=== PATIENT | female | born 1990 | race Caucasian/White ===

== ENCOUNTER → 2018-01-13 14:40 | Outpatient (CLI) | payer OTHER, SELFPAY ==
[2018-01-13 15:05] LABS: Basophils # 0.1 K/mm3 (0-0.2); Basophils % 0.7 % (0.1-2.0); Eosinophils # 0.2 K/mm3 (0.0-0.4); Eosinophils % 1.7 % (0.1-12.0); Hematocrit 38.8 % (37.0-47.0); Hemoglobin 12.6 g/dL (12.2-16.2); Lymphocytes # 3.5 K/mm3 (0.7-4.5); Lymphocytes % 33.6 K/mm3 (10-50); Mean Corpuscular HGB Conc 32.5 g/dL (31.8-35.4); Mean Corpuscular Hemoglobin 28.1 pg (27.0-31.2); Mean Corpuscular Volume 86.6 fl (81-99); Mean Platelet Volume 7.3 fl (7.4-10.4); Monocytes # 0.6 K/mm3 (0.1-1.0); Platelet Count 251 K/mm3 (142-424); Red Blood Count 4.48 M/mm3 (4.20-5.40); Red Cell Distribution Width 12.3 % (11.5-17.5); White Blood Count 10.3 K/mm3 (4.8-10.8)
[2018-01-13 16:16] LABS: Alanine Aminotransferase 31 U/L (12-78); Albumin Level 3.8 gm/dL (3.4-5.0); Albumin/Globulin Ratio 0.9 (1.1-1.8); Alkaline Phosphatase 78 U/L (46-116); Anion Gap 15.4 mEq/L (5-15); Aspartate Amino Transferase 17 U/L (15-37); Bilirubin,Total 0.2 mg/dL (0.2-1.0); Blood Urea Nitrogen 15 mg/dL (7-18); Calcium 9.6 mg/dL (8.5-10.1); Carbon Dioxide 24 mmol/L (21.0-32.0); Chloride 108 mmol/L (98-107); Creatinine,Serum 0.78 mg/dL (0.55-1.02); Estimated Glomerular Filt Rate 89 ml/min (>60); Free T4 (Free Thyroxine) 1.18 ng/dl (0.76-1.46); GFR (African American) 108 ML/MIN (>60); Globulin 4.2 gm/dl (1.3-3.2); Glucose 95 mg/dL (74-106); Potassium 4.4 mmoL/L (3.5-5.1); Sodium 143 mmol/L (136-145); Thyroid Stimulating Hormone 2.05 uIU/ml (0.358-3.740)
[2018-01-15 19:03] LABS: Vitamin B12 327 pg/mL (232-1245)
== END ==
PROVIDERS: PCP Internal Medicine Adolescent Medicine; Visit Provider Nurse Practitioner Family
DX: R55 Syncope and collapse (principal); E03.9 Hypothyroidism, unspecified; E53.8 Deficiency of other specified B group vitamins
CPT/HCPCS: 36415; 80053; 82607; 84439; 84443; 85025; 93005

== ENCOUNTER → 2018-01-18 16:29 | Outpatient (CLI) | payer BC, SELFPAY | PROVIDERS: PCP Internal Medicine Adolescent Medicine; Visit Provider Internal Medicine Adolescent Medicine | DX: R55 Syncope and collapse (principal) | CPT/HCPCS: 93225 ==

== ENCOUNTER → 2018-01-27 15:04 | Outpatient (CLI) | payer BC, SELFPAY ==
--- NOTE | 2018-01-27 15:08 | CA_ITS ---
PROCEDURE: 2-D M-mode and color Doppler study INDICATIONS FOR THE TEST: Chest pain COPD Heart Murmur Tobacco Smoking Palpitations Fatigue SyncopeX Edema Hypertension Diabetes Mellitus Rheumatic Fever SOB BANSAL Obesity Hyperlipidemia Family History HD Additional History SVT PATIENT INFORMATION HEIGHT: 61 WEIGHT:180 GENDER: Female B/P:110/70 2-D/M-MODE INTERPRETATION: 2-D MEASUREMENTS OBSERVED VALUES IN CMS Right Ventricular Dimension (RVDd) 2.1 Interventricular Septum (Thickness)(IVsd) .7 Left Ventricular Internal Dimensions(LVIDd) 5.5 Left Ventricular Posterior Wall (Thickness)(LVPWd) .8 Aortic Root 3.5 Aortic Cusp Separation 2.1 Left Atrial Dimensions (LAD) 2.0 2D 1. Left atrium is normal size, left ventricle is normal size, visually estimated ejection fraction 55% with no obvious regional wall motion abnormality, there is no concentric left ventricular hypertrophy present. 2. The right atrium and right ventricle are normal size and contractility. 3. The aortic, mitral and tricuspid valve are grossly normal. 4. The pulmonic valve is poorly visualized. 5. No significant pericardial effusion noted. DOPPLER INTERROGATION: Doppler interrogation of the aortic, mitral and tricuspid valvular presence of mild mitral and tricuspid regurgitation, grade ventricular systolic pressure is 34 mmHg, diastolic parameters are within normal range. CONCLUSION: 1. Normal left ventricular size, preserved left ventricular systolic function, visually estimated ejection fraction of 55% with no obvious regional wall motion abnormality, there is no concentric left ventricular hypertrophy present. Diastolic parameters are within normal range. 2. Mild mitral and tricuspid regurgitation, calculi right ventricular systolic pressure is 34 mmHg 3. No significant pericardial effusion noted.
== END ==
PROVIDERS: Family Provider Internal Medicine Adolescent Medicine; PCP Internal Medicine Adolescent Medicine; Visit Provider Internal Medicine Adolescent Medicine
DX: I47.1 Supraventricular tachycardia (principal)
CPT/HCPCS: 93306

== ENCOUNTER → 2019-08-24 15:50 | Outpatient (CLI) | payer BC, SELFPAY ==
[2019-08-24 15:51] LABS: Adenovirus F 40/41, stool Not Detected (NotDetected); Astrovirus Not Detected (NotDetected); Campylobacter Not Detected (NotDetected); Clostridium Difficile A/B, PCR Not Detected (NotDetected); Cryptosporidium Not Detected (NotDetected); Cyclospora Cayetanesis Not Detected (NotDetected); Entamoeba histolytica Not Detected (NotDetected); Enteroaggregative E coli Not Detected (NotDetected); Enteropathogenic E coli Not Detected (NotDetected); Enterotoxigenic E coli Not Detected (NotDetected); Giardia lamblia Not Detected (NotDetected); Plesimonas Shigalloides, PCR Not Detected (NotDetected); Rotavirus A Not Detected (NotDetected); Salmonella, PCR Not Detected (NotDetected); Sapovirus Not Detected (NotDetected); Shiga-like toxin E coli Not Detected (NotDetected); Shigella Enterovasive E coli Not Detected (NotDetected); Vibrio Cholerae Not Detected (NotDetected); Vibrio, PCR Not Detected (NotDetected); Yersinia Entercolitica, PCR Not Detected (NotDetected)
[2019-08-24 19:15] LABS: Norovirus Detected (NotDetected)
== END ==
PROVIDERS: Visit Provider Nurse Practitioner Family
DX: R19.7 Diarrhea, unspecified (principal); A08.11 Acute gastroenteropathy due to Norwalk agent
CPT/HCPCS: 87507

== ENCOUNTER → 2020-07-23 10:34 | Outpatient (CLI) | payer BC, SELFPAY ==
--- NOTE | 2020-07-23 10:42 | XR_ITS ---
PROCEDURE: XR CHEST 2V CLINICAL HISTORY: COUGH COMPARISON: No exams were available for comparison FINDINGS: The cardiomediastinal silhouette and pulmonary vascularity are within normal limits. The lungs are clear without infiltrates, suspicious nodules, or pleural effusions. No acute bony abnormalities. IMPRESSION: No acute findings. Dictated by: Dr. Paco Starr MD 07/23/2020 11:35 Dr. Paco Starr MD in [place] 07/23/2020 11:35
== END ==
PROVIDERS: PCP Internal Medicine Adolescent Medicine; Visit Provider Internal Medicine Adolescent Medicine
DX: R05 Cough (principal)
CPT/HCPCS: 71046

== ENCOUNTER → 2021-06-24 08:09 | Outpatient (CLI) | payer BC, SELFPAY | PROVIDERS: PCP Internal Medicine Adolescent Medicine; Visit Provider Nurse Practitioner | DX: Z20.822 Contact with and (suspected) exposure to COVID-19 (principal) | CPT/HCPCS: C9803; U0003; U0005 ==

== ENCOUNTER → 2021-06-27 08:10 | Outpatient (CLI) | payer BC, SELFPAY | PROVIDERS: PCP Internal Medicine Adolescent Medicine; Visit Provider Nurse Practitioner | DX: Z20.822 Contact with and (suspected) exposure to COVID-19 (principal) | CPT/HCPCS: C9803; U0003; U0005 ==

== ENCOUNTER → 2021-06-30 08:12 | Outpatient (CLI) | payer OTHER, SELFPAY | PROVIDERS: PCP Internal Medicine Adolescent Medicine; Visit Provider Nurse Practitioner | DX: Z20.822 Contact with and (suspected) exposure to COVID-19 (principal) | CPT/HCPCS: C9803; U0003; U0005 ==

== ENCOUNTER → 2021-09-09 08:11 | Outpatient (CLI) | payer OTHER, SELFPAY | PROVIDERS: PCP Internal Medicine Adolescent Medicine; Visit Provider Nurse Practitioner | DX: Z20.822 Contact with and (suspected) exposure to COVID-19 (principal) | CPT/HCPCS: C9803; U0003; U0005 ==

== ENCOUNTER → 2021-09-15 08:02 | Outpatient (CLI) | payer OTHER, SELFPAY | PROVIDERS: PCP Internal Medicine Adolescent Medicine; Visit Provider Nurse Practitioner | DX: Z20.822 Contact with and (suspected) exposure to COVID-19 (principal) | CPT/HCPCS: C9803; U0003; U0005 ==

== ENCOUNTER → 2021-09-29 08:22 | Outpatient (CLI) | payer OTHER, SELFPAY | PROVIDERS: PCP Internal Medicine Adolescent Medicine; Visit Provider Nurse Practitioner | DX: Z20.822 Contact with and (suspected) exposure to COVID-19 (principal) | CPT/HCPCS: C9803; U0003; U0005 ==

== ENCOUNTER → 2021-10-06 17:30 | Outpatient (CLI) | payer OTHER, SELFPAY | PROVIDERS: Visit Provider Nurse Practitioner Family | DX: R30.0 Dysuria (principal) | CPT/HCPCS: 87086 ==

== ENCOUNTER 2021-10-11 09:06 | Emergency (ER) | payer BC, SELFPAY ==
[2021-10-11 09:30] VITALS: BP 160/94; PULSE 101; RESP 19; TEMP 37.2; O2SAT 99; BMI 43.4
[2021-10-11 10:04] LABS: UTC Strep Screen (Rapid) Negative (Negative)
[2021-10-11 10:19] VITALS: BP 122/74
--- NOTE | 2021-10-11 10:20 | HMH.EDUTC ---
[facility] Disposition Clinical Impression: Viral syndrome Disposition: Home, Self-Care Condition on Discharge: Good Instructions: DI for Viral Syndrome, DI for COVID-19 (Suspected or Confirmed ), Preventing the Spread of Coronavirus Discharge Instructions Additional Instructions: *Monitor Temp, Over the counter Motrin or Tylenol as directed/as needed Tylenol every 4 hours and Motrin every 6 hours (as long as your family doctor has told you that you can take it) for fever or pain. and straight to ER if unable to lower temp less than 101.0 after medication given *Warm salt water gargles may help to soothe the throat *Throat Lozenges *Warm fluids like tea with honey may help to soothe the throat *Sleep elevated *Humidifier/Vaporizer Bromfed may cause drowsiness. Know how it effects you (your child) before driving, caring for small child, or sending your child to school. Not other antihistamines/allergy medications while taking bromfed Your throat swab was sent for culture. Those results are typically sent to your primary care. Be sure to follow up in 2-3 days with your family doctor/primary care physician if no improvement so they can review those result and treat if necessary. If you don?t have a primary care doctor, I recommend you get one but in the mean time, you will have to return to a walk in clinic Follow up IMMEDIATELY for new or worsening symptoms or no Noticeable improvement over the next 48-72 hours. 911 for difficulty breathing or swallowing You were tested for today for COVID19 your test result should be back in the next 24-48 hours, you may check your results on the [facility] My Health Portal if you have trouble logging on you may call You was given a handout with instructions for Self Quarantine and Self isolation for while you wait on test results and what to do if they are positive If you are positive the Health Dept will be contacting you also Make sure to take your Vitamins Vit. C Vit D and Zinc if you can take them Prescriptions: Brompheniramine/Pseudoephed/Dm [Bromfed Dm Cough Syrup] 5 - 10 ml PO Q46H PRN #200 ml PRN Reason: Cough Transmission Status: Pending to [id number] Referrals: Andrea De Luna MD [Primary Care Provider] - As needed Forms: Work/School Release Time of Disposition: 10:31 Medical Decision Making - Chemo Inquiry Pt receiving controlled substance: No Chemo was queried for this patient: No Vital Signs: 10/11/21 09:30 10/11/21 10:19 Temperature 99.0 F Temperature Source Oral Pulse Rate [Right Brachial] 101 H Respiratory Rate 19 Blood Pressure [Right Arm] 160/94 H 122/74 Blood Pressure Mean [Right Arm] 116 90 Blood Pressure Source [Right Arm] Automatic Cuff Automatic Cuff Blood Pressure Position [Right Arm] Sitting Sitting 02 Sat by Pulse Oximetry 99 Oxygen Delivery Method Room Air - Lab Data Lab results reviewed: Yes: I reviewed the patient's lab results. Lab Results 10/11/21 09:39: Strep Scn Rapid Clinic Negative Orders (Tests/Meds): ORDERS Category Date Time Status Full Resp Panel w/COVID ([facility]) Routine Lab 10/11/21 09:57 Ordered Strep Screen Confirmation Stat Micro 10/11/21 09:39 Received Medical Decision Narrative: Patient denies LMP was 1 week ago [facility] HPI - General Stated complaint: sore throat, runny nose, congestion Time Seen by Provider: 10/11/21 10:20 Mode of Arrival: Ambulatory Source of Information: Patient Limitations: No Limitations Description of Symptoms (Recalled from Triage Doc. by RN): PATIENT C/O SORE THROAT, EAR ACHE, AND RUNNY NOSE X 3 DAYS. RECENTLY EXPOSED TO COVID HEENT Symptoms (Recalled from RN notes): Yes Resp Symptoms (Recalled from RN notes): No Skin Symptoms (Recalled from RN notes): No MS Symptoms (Recalled from RN notes): No Functional Status (Recalled from RN notes): WNL - History of Present Illness Provider Complaint: Patient states that she was recently around someone that tested p
[2021-10-11 10:32] VITALS: BP 122/74; PULSE 101; RESP 19; TEMP 37.2; O2SAT 99
[2021-10-11 14:23] LABS: Adenovirus,PCR Not Detected (NotDetected); Bordetella Pertussis Not Detected (NotDetected); Chlamydophila Pneumoniae, PCR Not Detected (NotDetected); Coronavirus 19, PCR Not Detected (NotDetected); Coronavirus 229E Not Detected (NotDetected); Coronavirus NL63 Not Detected (NotDetected); Coronavirus OC43 Not Detected (NotDetected); Coronovirus HKU1,PCR Not Detected (NotDetected); Human Metapneumovirus Not Detected (NotDetected); Influenza A, PCR Not Detected (NotDetected); Influenza AH1, 2009 Not Detected (NotDetected); Influenza AH1, PCR Not Detected (NotDetected); Influenza AH3,PCR Not Detected (NotDetected); Influenza B, PCR Not Detected (NotDetected); Mycoplasma Pneumoniae, PCR Not Detected (NotDetected); Parainfluenza 1, PCR Not Detected (NotDetected); Parainfluenza 2, PCR Not Detected (NotDetected); Parainfluenza 4, PCR Not Detected (NotDetected); Respiratory Syncytial Virus Not Detected (NotDetected); Rhinovirus/Enterovirus Not Detected (NotDetected)
[2021-10-11 16:29] LABS: Parainfluenza 3, PCR Detected (NotDetected)
== END 2021-10-11 10:36 | disposition home or self-care (01) ==
PROVIDERS: Emergency Provider Nurse Practitioner; PCP Internal Medicine Adolescent Medicine
DX: B34.9 Viral infection, unspecified (principal)
CPT/HCPCS: 87581; 87632; 87798; 87880; 99203; C9803; G0463; U0003; U0005

== ENCOUNTER → 2021-11-09 16:52 | Outpatient (CLI) | payer BC, SELFPAY | PROVIDERS: PCP Nurse Practitioner Family; Visit Provider Nurse Practitioner Family | DX: Z20.822 Contact with and (suspected) exposure to COVID-19 (principal); R05.9 Cough, unspecified | CPT/HCPCS: C9803; U0003; U0005 ==

== ENCOUNTER → 2022-03-03 13:30 | Outpatient (POV) | payer BC, SELFPAY | PROVIDERS: Visit Provider Dermatology | DX: Z00.00 Encounter for general adult medical examination without abnormal findings (principal) ==

== ENCOUNTER 2023-12-20 17:20 | Outpatient (CLI) | payer BC, SELFPAY | END 2023-12-20 23:59 | LOC: LAB 17:20 | PROVIDERS: PCP Internal Medicine Adolescent Medicine; Visit Provider Internal Medicine | DX: R73.09 Other abnormal glucose (principal); Z53.9 Procedure and treatment not carried out, unspecified reason | CPT/HCPCS: 36415 ==

== ENCOUNTER 2023-12-21 07:03 | Outpatient (CLI) | payer BC, SELFPAY ==
[2023-12-21 08:50] LABS: Hemoglobin A1C 5.1 % (4.0-6.0)
[2023-12-22 13:13] LABS: Adrenocorticotropic Hormone 26.3 pg/mL (7.2-63.3)
== END 2023-12-21 23:59 ==
LOC: LAB 07:03
PROVIDERS: PCP Internal Medicine Adolescent Medicine; Visit Provider Internal Medicine
DX: R73.09 Other abnormal glucose (principal)
CPT/HCPCS: 36415; 82024; 82533; 83036

== ENCOUNTER 2024-03-08 10:24 | Outpatient (CLI) | payer BC, SELFPAY | END 2024-03-08 23:59 | disposition home or self-care (01) | LOC: LAB.DROPOF 03-09 10:24 | PROVIDERS: PCP Nurse Practitioner Family; Visit Provider Nurse Practitioner Family | DX: N39.0 Urinary tract infection, site not specified (principal); B96.20 Unspecified Escherichia coli [E. coli] as the cause of diseases classified elsewhere; B96.1 Klebsiella pneumoniae [K. pneumoniae] as the cause of diseases classified elsewhere; Z16.11 Resistance to penicillins; Z16.29 Resistance to other single specified antibiotic; N94.9 Unspecified condition associated with female genital organs and menstrual cycle | CPT/HCPCS: 87086; 87088; 87186 ==

== ENCOUNTER 2024-05-22 16:24 | Outpatient (CLI) | payer BC, SELFPAY ==
[2024-05-22 17:15] LABS: Alanine Aminotransferase 18 U/L (12-78); Albumin/Globulin Ratio 1.2 (1.1-1.8); Alkaline Phosphatase 80 U/L (38-126); Aspartate Amino Transferase 19 U/L (14-36); Bilirubin,Total 0.3 mg/dl (0.2-1.3); Blood Urea Nitrogen 12 mg/dl (7-17); Calcium 9.2 mg/dl (8.4-10.2); Carbon Dioxide 25 mmol/L (22.0-30.0); Chloride 107 mmol/L (98-107); Chol/HDL Ratio 3.7 (1-3.5); Cholesterol 150 mg/dl (140-200); Estimated Glomerular Filt Rate 96 ml/min (>60); GFR (African American) 117 ML/MIN (>60); Globulin 3.3 g/dL (1.3-3.2); Glucose 92 mg/dl (74-100); HDL Cholesterol 41 mg/dl (40-60); Sodium 139 mmol/L (136-145); Total Protein,Serum 7.3 g/dl (6.3-8.2); Triglycerides 73 mg/dl (30-150); VLDL Cholesterol 15 mg/dL (0-40)
[2024-05-22 17:26] LABS: Direct LDL Cholesterol 84.21 mg/dL (100-129)
[2024-05-22 18:05] LABS: Hemoglobin A1C 5.1 % (4.0-6.0)
== END 2024-05-22 23:59 | disposition home or self-care (01) ==
LOC: LAB 16:27
PROVIDERS: PCP Internal Medicine Adolescent Medicine; Visit Provider Internal Medicine Endocrinology, Diabetes & Metabolism
DX: E66.9 Obesity, unspecified (principal); Z68.42 Body mass index [BMI] 45.0-49.9, adult
CPT/HCPCS: 80053; 80061; 83036

== ENCOUNTER 2025-05-16 12:13 | Outpatient (CLI) | payer BC, SELFPAY ==
--- OUTSIDE RECORDS SUMMARY | 2025-01-06 17:30 | XMS_ITS ---
Author Organization [facility] Address [address] [facility] [address] [place] [address] Care Team Providers Care Senior Estimator Name Role Phone Andrea De Luna Primary Care Provider Clair Brown Unavailable [phone] Migration, Provider Unavailable Unavailable Allergies Allergen (clinical drug ingredient) Drug/Non Drug Allergy documented on EMR Reaction Allergy Type Onset Date Status levothyroxine Levothyroxine colored tabs- hives Drug Allergy Active [facility] Conversion Encounter Medications Medication SIG (Take, Route, Frequency, Duration) Notes Start Date End Date Status Benzonatate 200 MG 1 cap(s) orally 3 ti mes a day as needed for cough; Duration: 5 days 08/30/2024 Active Doxycycline Hyclate 100 MG 1 cap(s) oral ly 2 times a day; Duration: 10 days 08/30/2024 Active Levothyroxine Sodium 75 MCG 1 tab(s) ora lly once a day Active Lexapro 10 MG 1 tab(s) orally once a day Active Encounters Encounter Location Date Provider Diagnosis [facility] [address] [facility] [address] [place] [address] 01/06/2025 Provider Migration Bronchitis J40 and Acute non-recurrent maxillary sinusitis J01.00 Assessments Encounter Date Diagnosis (ICD Code) Assessment Notes Treatment Notes Treatment Clinical Notes Section Notes 01/06/2025 Bronchitis (ICD-10 - J40) 01/06/2025 Acute non-recurrent maxillary sinusitis (ICD-10 - J01.00) Plan Of Treatment Medication Medication Name Sig Start Date Stop Date Notes Benzonatate 200 MG 1 cap(s) orally 3 ti mes a day as needed for cough; Duration: 5 days 08/30/2024 Doxycycline Hyclate 100 MG 1 cap(s) oral ly 2 times a day; Duration: 10 days 08/30/2024 Progress Notes * Jackelin LOPEZ KDOB:[birth year] (35 yo F)Acc No.[id number]:01/06/2025 Patient: Jackelin REZA Provider: Marc rivera Migration :1990 A ge:34 Y S ex:Female Date:01/06/2025 Address:[facility] [address] [place], [id number] Pcp:Andrea De Luna Subjective: * Chief Complaints: * 1 . [facility] Conversion Encounter. * Medical History: * Medications: T aking Lexapro 10 MG Tablet 1 tab(s) orally once a day , Taking Levothyroxine Sodium 75 MCG Tablet 1 tab(s) orally once a day * Allergies: L evothyroxine: colored tabs- hives. Objective: * Vitals: Assessment: * Assessment: 1. A cute non-recurrent maxillary sinusitis - J01.00 (Primary) 2 . B ronchitis - J40 Plan: * Treatment: 2. B ronchitis Start Benzonatate Capsule, 200 MG, 1 cap(s), orally, 3 times a day as needed for cough, 5 days, 15, Refills 0. * * Electronic signature of Prov ider Migration on 05/18/2025 at 12:16 PM EDT Sign off status: Pending * Provider: Marc rivera Migration Date: 0 01/06/2025 Generated for Lee vargas/Irlanda/Mairaitting on: 0 05/18/2025 12:16 PM EDT
--- OUTSIDE RECORDS SUMMARY | 2025-04-05 04:45 | XMS_ITS ---
Author Organization [facility] Address [address] [place] [address] Care Team Providers Care Manager Casino Name Role Phone DrakeAndrea alston Primary Care Provider Clair Brown Unavailable [phone] Tawny Da Silva Unavailable [phone] Allergies Allergen (clinical drug ingredient) Drug/Non Drug Allergy documented on EMR Reaction Allergy Type Onset Date Status levothyroxine Levothyroxine colored tabs- hives Drug Allergy Active Results Component Value Reference Range Notes Urinalysis Reviewed date:04/05/2025 09:40:28 AM Interpretation: Performing Lab: Notes/Report: Color/Clarity yellow Leuk neg Nitrite neg Urobili 0.2 Protein neg pH 5.5 Blood neg Sp. Gr. 1.025 Ketone neg Bili neg Glucose neg CULTURE, URINE, ROUTINE (395 ) Reviewed date:04/09/2025 10:34:48 AM Interpretation: Performing Lab:[facility], [id number] Chirag Cowart Notes/Report: NON-FASTING CULTURE, URINE, ROUTINE SEE NOTE CULTURE, URINE, ROUTINE Micro Number: [id number] Test Status: Final Specimen Source: Urine Specimen Quality: Adequate Result: Mixed genital yin isolated. These superficial bacteria are not indicative of a urinary tract infection. No further organism identification is warranted on this specimen. If clinically indicated, recollect clean-catch, mid-stream urine and transfer immediately to Urine Culture Transport Tube. REASON FOR VISIT Possible uti and rash in groin area Medications Medication SIG (Take, Route, Frequency, Duration) Notes Start Date End Date Status Nystatin 695391 UNIT/GM 1 application Ex ternally Twice a day; Duration: 7 days 04/05/2025 Active Nystatin 410249 UNIT/GM 1 application Ex ternally Twice a day; Duration: 7 days 04/05/2025 Active Levothyroxine Sodium 88 MCG 1 tab(s) ora lly once a day Active Vital Signs Temperature 97.6 degrees Fahrenheit 04/05/20 25 Blood pressure systolic 120 mm Hg 04/05/20 25 Blood pressure diastolic 82 mm Hg 025 Heart Rate 80 /min 04/05/2025 Height 62 in 04/05/2025 Weight 249 lbs 04/05/2025 BMI 45.54 kg/m2 04/05/2025 Encounters Encounter Location Date Provider Diagnosis [facility] [address] [place] [address] 04/05/2025 Tawny Da Silva Dysuria R30.0 and Yeast dermatitis B37.2 Assessments Encounter Date Diagnosis (ICD Code) Assessment Notes Treatment Notes Treatment Clinical Notes Section Notes 04/05/2025 Dysuria (ICD-10 - R30.0) 04/05/2025 Yeast dermatitis (ICD-10 - B37.2) Keep area clean and dry, start topical therapy as noted and continue to use for several days after resolution of rash. Return precautions reviewed Plan Of Treatment Medication Medication Name Sig Start Date Stop Date Notes Nystatin 981010 UNIT/GM 1 application Ex ternally Twice a day; Duration: 7 days 04/05/2025 Nystatin 724879 UNIT/GM 1 application Ex ternally Twice a day; Duration: 7 days 04/05/2025 Next Appt Details Follow Up: prn, Reason: Progress Notes * Jackelin LOPEZ KDOB:[birth year] (35 yo F)Acc No.[id number]:04/05/2025 Progress Notes Patient: Kushal JOELJackelin MCCLELLAN Provider: TOREY Kent :1990 A ge:35 Y S ex:Female Date:04/05/2025 Address:[address], [place], [place] Pcp:Andrea De Luna Subjective: * Chief Complaints: * 1 . Possible uti and rash in groin area. * HPI: D ermatology: 35-year-old female presents today with rash and irritation in her inguinal folds bilaterally. Left is a little worse than the right. Started after vacation at the beach where she spent a lot of time in the water and heat. No fevers or constitutional symptoms otherwise. Has also had some very vague dysuria and urine is darker than usual. She does have a history of urinary tract infections and reports that her urinalysis is typically normal. * ROS: C ONSTITUTIONAL: Reviewed, No Symptoms Reported: Pari es. F EMALE REPRODUCTIVE: Reviewed, No Symptoms Reported: Pari nunez. G ASTROENTEROLOGY: Reviewed, No Symptoms Reported: Pari nunez. * Medical History: H ypothyroidism. * Medications: T aking Levothyroxine Sodium 88 MCG Capsule 1 tab(s) orally once a day , Discontinued Lexapro 10 MG Tablet 1 tab(s) orally once a day , Discontinued Doxycycline Hyclate 100 MG Capsule 1 cap(s) orally 2 times a day , Discontinued Benzonatate 200 MG Capsule 1 cap(s) orally 3 times a day as needed for cough , Medication List reviewed and reconciled with the patient * Allergies: L evothyroxine: colored tabs- hives. Objective: * Vitals: N urse: be, Pain: 0, Temp: 97.6, RR: 16, HR: 80, BP: 120/82, Ht: 62, Wt: 249, BMI:45.54. * Examination: G eneral Examination: General P leasant and Cooperative, NAD on RA,. Heart: R egular Rate and Rhythm, no murmur, rubs or gallops. Lungs: c lear to auscultation,. Abdomen: s oft, NT/ND, BS present. Skin: b ilat inguinal folds with mild erythema but with satellite papules. Psych N ormal Mood/Affect. Assessment: * Assessment: 1. Y east dermatitis - B37.2 (Primary) 2 . D ysuria - R30.0 ? Plan: * Treatment: 2. D ysuria L AB: CULTURE, URINE, ROUTINE (395) Value Reference Range C ULTURE SEE NOTE - * This lab was reviewed by Jes Stephen on 04/09/2025 at 10:34 AM EDT ?LAB: Urinalysis (Collection Date & Time - 04/05/2025)* Value Reference Range C olor/Clarity yellow * L euk neg * N itrite neg * U robili 0.2 * P rotein neg * p H 5.5 * B lood neg * S p. Gr. 1.025 * K etone neg * B john paul neg * G lucose neg * This lab was reviewed by Mert Da Silva on 04/05/2025 at 09:40 AM EDT * Procedure Codes: 8 1002 URINALYSIS, Modifiers: QW * Follow Up: p rn * * Sign off status: Completed true * Provider: TOREY Kent Date: 0 04/05/2025 Generated for Lee vargas/Irlanda/eTransmitting on: 0 05/18/2025 12:16 PM EDT History and Physical Notes * Examination Category Sub-Category Detail Notes Category Not es General Examination Heart: Regular Rate and Rhythm, no murmur, rubs or gallops Lungs: clear to auscultatio n, Abdomen: soft, NT/ND, BS pres ent Skin: bilat inguinal folds with mild erythema but with satellite papules General Pleasant and Coopera tive, NAD on RA, Psych Normal Mood/Affect
--- OUTSIDE RECORDS SUMMARY | 2025-04-20 07:31 | XMS_ITS ---
Author Organization [facility] Address [address] [place] [address] Care Team Providers Care Windows Phone Developer Name Role Phone Catherine Espana Unavailable [phone] Tawny Boss Unavailable [phone] REASON FOR VISIT NOB u/s order Encounters Encounter Location Date Provider Diagnosis [facility] [address] [place] [address] 04/20/2025 Tawny Boss Missed period N92.6 Assessments Encounter Date Diagnosis (ICD Code) Assessment Notes Treatment Notes Treatment Clinical Notes Section Notes 04/20/2025 Missed period (ICD-10 - N92.6) Plan Of Treatment Future Test Test Name Order Date *US OB Transvaginal 04/24/2025 Next Appt Details Provider Name:Tawny Boss, 06/06/2025 09:45:00 AM, [address], [address], Provider Name:Tawny Boss, 06/06/2025 10:00:00 AM, [address], [place], [address], Progress Notes * Jackelin LOPEZDOB:1990 (35 yo F)Acc No.[id number]:04/20/2025 Patient: Kushal JOELMert MCCLELLANina :1990 A ge:35 Y S ex:Female Address:[address], [place], [address] Subjective: * Chief Complaints: * N OB u/s order Assessment: * Assessment: 1. M issed period - N92.6 Plan: * Treatment: * true * Date: Generated for Lee vargas/Irlanda/Shireen on: 0 05/18/2025 12:16 PM EDT
--- OUTSIDE RECORDS SUMMARY | 2025-04-27 04:57 | XMS_ITS ---
Author Organization [facility] Address [address] [facility] [address] [place] [address] Care Team Providers Care Video Surveillance Technician Name Role Phone Catherine Espana Unavailable [phone] GeraTawny Unavailable [phone] REASON FOR VISIT Sickness Medications Medication SIG (Take, Route, Frequency, Duration) Notes Start Date End Date Status Ondansetron HCl 4 MG Tablet 1 tablet Ora lly every 6 hours as needed; Duration: 30 days 04/27/2025 Active Bonjesta 20-20 MG Tablet Extended Release 1 tablet at bedtime Orally Once a day; Duration: 30 days 04/27/2025 Active Encounters Encounter Location Date Provider Diagnosis [facility] [address] [place] [address] 04/27/2025 Tawny Gera Plan Of Treatment Medication Medication Name Sig Start Date Stop Date Notes Ondansetron HCl 4 MG Tablet 1 tablet Ora lly every 6 hours as needed; Duration: 30 days 04/27/2025 Bonjesta 20-20 MG Tablet Extended Release 1 tablet at bedtime Orally Once a day; Duration: 30 days 04/27/2025 Next Appt Details Provider Name:Tawny Gera, 06/06/2025 09:45:00 AM, [address] [facility] [address] [place] [address], [address], Provider Name:Tawny Gera, 06/06/2025 10:00:00 AM, [address] , [facility] [address], [place], [address], Progress Notes * Sherice LOPEZ:1990 (35 yo F)Acc No.[id number]:04/27/2025 Patient: Jackelin REZA :1990 A ge:35 Y S ex:Female Address:[address] [place] [address] * Refills Start Bonjesta Tablet Extended Release, 20-20 MG, Orally, 30 Tablet, 1 tablet at bedtime, Once a day, 30 days, Refills=3 Start Ondansetron HCl Tablet, 4 MG, Orally, 60, 1 tablet, every 6 hours as needed, 30 days, Refills=1 Subjective: * Chief Complaints: * S ickness Plan: * Treatment: * true * Date: Generated for Lee vargas/Irlanda/Shireen on: 0 05/18/2025 12:16 PM EDT
[2025-05-16 20:03] LABS: Coronavirus 19, PCR Not Detected (NotDetected); Influenza A, PCR Not Detected (NotDetected); Influenza B, PCR Not Detected (NotDetected)
--- OUTSIDE RECORDS SUMMARY | 2025-05-18 12:16 | XMS_ITS | Encounter Summary ---
Author Organization [facility] Address [address] [place] [address] Care Team Providers Care Ice Seller Name Role Phone Andrea De Luna MD Primary Care Provider [phone] Encounter Details Date Type Department Care Team (Late st Contact Info) Description 03/19/2025 Results Follow-Up [facility] [address] [place] [address] Mary Wolff MD [address] [place] [address] Social History Tobacco Use Types Packs/Day Years Used Date Smoking Tobacco: Never Smokeless Tobacco: Never Alcohol Use Standard Drinks/Week Comments Not Currently 0 (1 standard drink = 0.6 oz pur e alcohol) rarely AUDIT-C Answer Date Recorded Q1: How often do you have a drink containing alcohol? Never 12/09/2022 Q2: How many drinks containi ng alcohol do you have on a typical day when you are drinking? Patient does not drink Q3: How often do you have si x or more drinks on one occasion? Never 12/09/2022 Overall Financial Resource Strain (CARDIA) Answe r Date Recorded How hard is it for you to pa y for the very basics like food, housing, medical care, and heating? Not hard at all 06/26/2020 [facility] Occup[facility] ional [facility] - Occupational Stress Questionnaire Answer Date Recorded Do you feel stress - tense, restless, nervous, or anxious, or unable to sleep at night because your mind is troubled all the time - these days? Not at all 06/26/2020 Exercise Vital Sign Answer Date Recorde d On average, how many days pe r week do you engage in moderate to strenuous exercise (like a brisk walk)? 0 days 06/26/2020 On average, how many minutes do you engage in exercise at this level? 0 min 06/26/2020 Hunger Vital Sign Answer Date Recorded Within the past 12 months, y ou worried that your food would run out before you got the money to buy more. Never true 06/26/20 20 Within the past 12 months, t he food you bought just didn't last and you didn't have money to get more. Never true 06/26/2020 PRAPARE - Transportation Answer Date Re corded In the past 12 months, has l ack of transportation kept you from medical appointments or from getting medications? No 06/05 In the past 12 months, has l ack of transportation kept you from meetings, work, or from getting things needed for daily living? No 06/26/2020 Post Depression Scale Answer Date Recorded Retired Post Depression Score 2 12/09/2022 Retired EPD Scale: Thought of Harming Self Unrec ognized value 12/09/2022 Abuse Screen Answer Date Recorded Feels Unsafe at Home or Work/School no 12/09/2022 Feels Threatened by Someone no 05/2023 Does Anyone Try to Keep You From Having Contact with Others or Doing Things Outside Your Home? no 12/09/2022 Physical Signs of Abuse Present no 12/09/2022 Housing Stability Answer Date Recorded Current Living Arrangements home 05/2023 Potentially Unsafe Housing Conditions Not on bharathi e 12/09/2022 Disabilities Answer Date Recorded Difficulty Concentrating, Remembering or Making Decisions no 12/09/2022 Difficulty Managing Errands Independently no 12/09/2022 Comments Unknown Sex and Gender Information Value Date Recorded Sex Assigned at Female 03/14/2025 2:39 PM EDT Legal Sex Female 1:52 PM EDT Gender Identity Not on file Sexual Orientation Straight 03/14/2025 2: 39 PM EDT documented as of this encounter Miscellaneous Notes * Telephone Encounter - Mary Wolff MD - 03/19/2025 1:53 PM EDT Lab letter documented in this encounter Plan of Treatment Upcoming Encounters Date Type Department Care Team (Late st Contact Info) Description 03/04/2026 8:15 AM EDT Office Visit [facility] [address] [place] [address] Mary Wolff MD [address] [place] [address] documented as of this encounter Goals Goal Patient Goal Type Associated Problems Recent Progress Patient-Stated? Author Specialty Pharmacy General Goal General On track( 024 12:24 PM EDT) No Sadaf Olivera, MattD Note: Achieve and Maintain 5% Weight Loss from Starting Body Weight After 12 Weeks of Therapy Starting Values: Estimated body mass index is 48.21 kg/m as calculated from the following: Height as of an earlier encounter on 04/03/24: 153.7 cm (60.5 ). Weight as of an earlier encounter on 04/03/24: 114 kg (251 lb). Goal Values at 12 Weeks & Maintenance: Weight: 108.3 kg documented as of this encounter Visit Diagnoses Not on filedocumented in this encounter Care Teams Ice Seller Relationship Specialty Start Date End Date Andrea De Luna MD [address] [facility] [address] [place] [address] PCP - General Adolescent Medicine 12/07/22 documented as of this encounter
--- OUTSIDE RECORDS SUMMARY | 2025-05-18 12:16 | XMS_ITS | Clinical Summary ---
Author Organization [facility] Address [address] [place] [address] Care Team Providers Care Steel Erector Name Role Phone Andrea De Luna MD Primary Care Provider + [phone] Allergies Active Allergy Reactions Criticality Noted Date Comments Levothyroxine Rash Low 10/06/2021 Red dye in tablet, can tolerate the white levothyroxine Red Dye #40 (Allura Red) Hives Medium 08/18/2019 Dye in levothyroxine (has to have a white tablet) Liraglutide -Weight Management Nausea Only 12/14/2023 Semaglutide Nausea Only 12/14/2023 Medications cetirizine (zyrTEC) 10 MG tablet Take 1 tablet by mouth Daily As Needed for Allergies. 09/15/2022 Active escitalopram (LEXAPRO) 10 MG tablet Take 1 tablet by mouth Every Night. Active levothyroxine (Synthroid) 88 MCG tablet Take 1 tablet by mouth Daily. 90 tablet 1 03/19/2025 Active Active Problems Problem Noted Date Diagnosed Date Morbid obesity 04/03/2024 Assessment & Plan (04/03/2024 1:21 PM EDT): Patient's (Body mass index is 48.21 kg/m .) indicates that they are morbidly/severely obese (BMI > 40 or > 35 with obesity - related health condition) with health conditions that include dyslipidemias . Weight is unchanged. BMI is above average; BMI management plan is completed. We discussed portion control, increasing exercise, and pharmacologic options including zepbound discussed- she did well with 2.5 mg dose. Rx sent for dose titration and pharmacy management . Weight gain 10/01/2023 Assessment & Plan (10/01/2023 8:44 AM EST): Assoc with Not breast feeding Bmi 46 Rx sent for zepbound- she will let us know about coverage Discussed with patient that use of GLP-1 medications including semaglutide (ozempic and wegovy) and mounjaro, trulicity, byetta, bydureon, saxenda and victoza are contraindicated while planning conception and these medications need to be discontinued 3 months prior to any . While taking these medications precautions should be taken to prevent care following delivery 05/2023 Allergic rhinitis due to pollen 11/04/2021 Fever blister 11/04/2021 Supraventricular tachycardia 11/04/2021 Xeroderma 11/04/2021 Vitamin D deficiency 08/19/2020 Assessment & Plan (03/15/2025 2:33 PM EDT): Check level- off supplement currently Assessment & Plan (09/23/2022 3:09 PM EST): Continue PNV Also anemic- check iron level Assessment & Plan (08/19/2020 8:41 PM EST): Update vitamin D levels Delivery by section using low vertical uterine incision 06/28/2020 Adult hypothyroidism 07/09/2016 Overview (07/09/2016): Impression: 03/01/2015 - check tfts, keep tsh 1 or less; Assessment & Plan (03/15/2025 2:32 PM EDT): Refill levothyroxine Check tfts Assessment & Plan (10/01/2023 8:42 AM EST): Continue synthroid 50 mcg - 1 and 1/2 daily Check tfts Assessment & Plan (09/23/2022 3:08 PM EST): Taking synthroid 75 mcg daily Check tfts Assessment & Plan (11/04/2021 4:21 PM EST): Recent severe fatigue Assessment & Plan (08/19/2020 8:41 PM EST): Some symptoms c/w ppt Check abs and tfts On synthroid 50 mcg daily Assessment & Plan (08/18/2019 1:16 PM EST): Is on synthroid 50 mcg daily Check tfts Assessment & Plan (08/05/2018 7:48 AM EDT): Check tfts Assessment & Plan (07/08/2017 4:50 PM EDT): Check tfts - keep tsh close to 1 Assessment & Plan (07/09/2016 4:10 PM EDT): Check tfts and vitamin D 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 Recurrent cystitis 07/09/2016 B12 deficiency 07/09/2016 Overview (07/09/2016): Impression: 03/01/2015 - update levels- taking weekly supplement; Assessment & Plan (10/01/2023 8:43 AM EST): Off all supplements - update levels Assessment & Plan (09/23/2022 3:08 PM EST): Taking supplement q o day Requests check level and share with OB Assessment & Plan (08/19/2020 8:40 PM EST): Update vitamin b12 levels - not currently on supplement Assessment & Plan (08/18/2019 1:16 PM EST): Continue b12 supplement- update levels today Assessment & Plan (08/05/2018 7:48 AM EDT): On supplement- 5000 mg daily- update levels Assessment & Plan (07/08/2017 4:49 PM EDT): Update vitamin B12 level- is on 1000 mcg daily Assessment & Plan (07/09/2016 4:10 PM EDT): Had reaction to injection- on oral supplement Check levels Resolved Problems Problem Noted Date Diagnosed Date Resolved Date Term 12/06/2022 12/09/2022 Normal labor 06/26/2020 06/28/2020 Bronchitis 07/09/2016 06/28/2020 Overview (07/09/2016): Impression: 03/01/2015 - rx for z pack provided, productive cough with wheezing purulent phlegm; Fatigue 07/09/2016 06/28/2020 Overview (07/09/2016): Impression: 03/01/2015 - check vitamin levels, iron; Assessment & Plan (08/18/2019 1:16 PM EST): Check vitamin D level, b12 No other changes recommended Assessment & Plan (08/05/2018 7:49 AM EDT): Check tfts Assessment & Plan (07/08/2017 4:50 PM EDT): More tired recently - check vitamin levels and vitamin D included Encounters Date Type Department Care Team Description 03/19/2025 Results Follow-Up [facility] [address] [place] [address] Mary Wolff MD 03/15/2025 11:00 AM EDT Office Visit [facility] [address] [place] [address] Mary Wolff MD Vitamin D deficiency (Primary Dx); Adult hypothyroidism 03/15/2025 Travel from Last 3 Months Immunizations Immunization Administration Dates Next Due COVID-19 (MODERNA) 1st,2nd,3 rd Dose Monovalent 08/06/2021,11/22/2020,10/23/2020 Flu Vaccine Quad PF >36MO 07/29/2021,,07/31/2019,2017 Flu Vaccine Split Quad 07/20/2011,08/08/2010,11/2008 FluMist 2-49yrs 08/17/2008 Flublok 18+yrs 07/17/2022 Fluzone >6mos 07/08/2017 Fluzone Quad >6mos (Multi-dose) 07/08/2017 HPV Quadrivalent 03/15/2009,10/19/2008, 8 Hep B, Adolescent or Pediatric 05/09/2002,2001,10/31/2001 Hepatitis A 11/20/2018,05/04/2018,05/03/2018 MMR 07/17/2020 Td (TDVAX) 06/18/2003 Tdap 04/15/2020 Social History Tobacco Use Types Packs/Day Years Used Date Smoking Tobacco: Never Smokeless Tobacco: Never Tobacco Cessation:Counseling Given: Not Answered Alcohol Use Standard Drinks/Week Comments Not Currently [...] and heating? Not hard at all 06/26/2020 [facility] [place] of Occupat ional Health - Occupational Stress [...] things needed for daily living? No 06/26/2020 [place] Depression Scale Answer Date Recorded Retired [place] Depression Score 2 12/09/2022 Retired EPD Scale: [...] Orientation Straight 03/14/2025 2: 39 PM EDT Last Filed Vital Signs Vital Sign Reading Time Taken Comments Blood Pressure 120/70 03/15/2025 10:57 AM EDT Pulse 87 03/15/2025 10:57 AM EDT Temperature 37 C (98.6 F) 12/11/2022 7:30 AM EST Respiratory Rate 16 12/11/2022 7:30 AM EST Oxygen Saturation 100% 04/03/2024 11:50 AM EDT Inhaled Oxygen Concentration - - Weight 113 kg (250 lb) 03/15/2025 10:57 AM EDT Height 153.7 cm (5' 0.51 ) 03/15/2025 10:57 AM E DT Body Mass Index 48 03/15/2025 10:57 AM EDT Plan of Treatment Upcoming Encounters Date Type Department Care Team (Late st Contact Info) Description 03/04/2026 8:15 AM EDT Office Visit [facility] [address] [place] [address] Mary Wolff MD [address] [facility] [address] [place] [id number] Health Maintenance Due Date Last Done Comments Annual Gynecologic Pelvic and Breast Exam 1991 PAP SMEAR 02/28/2012 ANNUAL PHYSICAL 07/08/2017 COVID-19 Vaccine ( season) 2024 09/30/2023, 08/14/2022, 08/06/2021, Additional history exists INFLUENZA VACCINE 07/04/2025 07/13/2024, , 07/17/2022, Additional history exists TDAP/TD VACCINES (3 - Td or Tdap) 04/15/2030 04/15/2020, 06/18/2003 HEPATITIS C SCREENING Completed 06/02/2022, 020 Pneumococcal Vaccine 0-49 Aged Out No longer eligible based on patient's age to complete this topic Goals Goal Patient Goal Type Associated Problems Recent Progress Patient-Stated? Author Specialty Pharmacy General Goal General On track( 024 12:24 PM EDT) No Sadaf Olivera, PharmD Note: Achieve and Maintain 5% Weight Loss [...] 12 Weeks & Maintenance: Weight: 108.3 kg Procedures Procedure Name Priority Date/Time Associated Diagnosis Comments LIPID PANEL Routine 03/15/2025 11:22 AM EDT Adult hypothyroidism VITAMIN D,25-HYDROXY Routine 03/15/2025 11:22 AM EDT Vitamin D deficiency VITAMIN B12 Routine 03/15/2025 11:22 AM EDT Adult hypothyroidism IRON Routine 03/15/2025 11:22 AM EDT Adult hypothyroidism CBC WITH AUTO DIFFERENTIAL Routine 03/15/2025 11:22 AM EDT Adult hypothyroidism COMPREHENSIVE METABOLIC PANEL Routine 03/15/2025 11:22 AM EDT Adult hypothyroidism TSH Routine 03/15/2025 11:22 AM EDT Adult hypothyroidism T4, FREE Routine 03/15/2025 11:22 AM EDT Adult hypothyroidism HEPATITIS C ANTIBODY Routine 06/02/2022 5:03 PM EDT First trimester from Last 3 Months or Most Recently Relevant to Health Maintenance Results * (ABNORMAL) CBC Auto Differential (03/15/2025 11:22 AM EDT) [facility] WBC 8.58 3.40 - 10.80 10*3/mm3 03/15/2025 11:07 PM EDT [facility] RBC 4.42 3.77 - 5.28 10*6/mm3 03/15/2025 11:07 PM EDT [facility] Hemoglobin 12.1 12.0 - 15.9 g/dL 03/15/2025 11:07 PM EDT [facility] Hematocrit 37.7 34.0 - 46.6 % 03/15/2025 11:07 PM EDT [facility] MCV 85.3 79.0 - 97.0 fL 03/15/2025 11:07 PM EDT [facility] MCH 27.4 26.6 - 33.0 pg 03/15/2025 11:07 PM EDT [facility] MCHC 32.1 31.5 - 35.7 g/dL 03/15/2025 11:07 PM [facility] RDW 13.1 12.3 - 15.4 % 03/15/2025 11:07 PM [facility] RDW-SD 40.4 37.0 - 54.0 fl 03/15/2025 11:07 PM [facility] MPV 10.1 6.0 - 12.0 fL 03/15/2025 11:07 PM [facility] Platelets 270 140 - 450 10*3/mm3 03/15/2025 11:07 PM [facility] Neutrophil % 52.5 42.7 - 76.0 % 03/15/2025 11:07 PM [facility] Lymphocyte % 33.8 19.6 - 45.3 % 03/15/2025 11:07 PM [facility] Monocyte % 8.6 5.0 - 12.0 % 03/15/2025 11:07 PM [facility] Eosinophil % 3.5 0.3 - 6.2 % 03/15/2025 11:07 PM [facility] Basophil % 0.8 0.0 - 1.5 % 03/15/2025 11:07 PM [facility] Immature Grans % 0.8(H) 0.0 - 0.5 % 03/15/2025 11:07 PM [facility] Neutrophils, Absolute 4.50 1.70 - 7.00 10*3/mm3 03/15/2025 11:07 PM [facility] Lymphocytes, Absolute 2.90 0.70 - 3.10 10*3/mm3 03/15/2025 11:07 PM [facility] Monocytes, Absolute 0.74 0.10 - 0.90 10*3/mm3 03/15/2025 11:07 PM [facility] Eosinophils, Absolute 0.30 0.00 - 0.40 10*3/mm3 03/15/2025 11:07 PM [facility] Basophils, Absolute 0.07 0.00 - 0.20 10*3/mm3 03/15/2025 11:07 PM EDT [facility] Immature Grans, Absolute 0.07(H) 0.00 - 0.05 10*3/mm3 03/15/2025 11:07 PM EDT [facility] nRBC 0.0 0.0 - 0.2 /100 WBC 03/15/2025 11:07 PM EDT [facility] Blood Venipuncture / Unknown 03/15/2025 11:22 AM EDT 03/15/2025 11:22 AM EDT Mary Wolff MD LAB BLOOD ORDERABLES Fin al Result Performing Organization Address [facility] Co de Phone Number [facility]
[address] [place] [address], * Vitamin D,25-Hydroxy (03/15/2025 11:22 AM EDT) 25 Hydroxy, Vitamin D 33.1 30.0 - 100.0 ng/ml 03/15/2025 11:31 PM EDT [facility] Blood Structure of left upper limb / Unknown Venipuncture / Unknown 03/15/2025 11:22 AM EDT 03/15/2025 11:22 AM EDT Narrative [facility] - 03/15/2025 11:31 PM EDT Reference Range for Total Vitamin D 25(OH) Deficiency <20.0 ng/mL Insufficiency 21-29 ng/mL Sufficiency 30-100 ng/mL Toxicity >100 ng/ml Mary Wolff MD LAB BLOOD ORDERABLES Fin al Result Performing Organization Address City/[facility] Co de Phone Number [facility]
[address] [place] [address], * TSH (03/15/2025 11:22 AM EDT) TSH 3.690 0.270 - 4.200 uIU/mL 03/15/2025 11:50 PM EDT [facility] Blood Venipuncture / Unknown 03/15/2025 11:22 AM EDT 03/15/2025 11:22 AM EDT us Mary Wolff MD LAB BLOOD ORDERABLES Fin al Result Performing Organization Address City/[facility]/ZIP Co de Phone Number [facility]
[address] [place] [address], * T4, Free (03/15/2025 11:22 AM EDT) Free T4 1.31 0.92 - 1.68 ng/dL 03/15/2025 11:50 PM EDT [facility] Blood Venipuncture / Unknown 03/15/2025 11:22 AM EDT 03/15/2025 11:22 AM EDT us Mary Wolff MD LAB BLOOD ORDERABLES Fin al Result Performing Organization Address [facility] Co de Phone Number [facility]
[address] [place] [address], * Iron (03/15/2025 11:22 AM EDT) Iron 45 37 - 145 mcg/dL 03/15/2025 11:48 PM EDT [facility] Blood Venipuncture / Unknown 03/15/2025 11:22 AM EDT 03/15/2025 11:22 AM EDT us Mary Wolff MD LAB BLOOD ORDERABLES Fin al Result Performing Organization Address City/[facility]/ZIP Co de Phone Number [facility]
[address] [place] [address], * (ABNORMAL) Vitamin B12 (03/15/2025 11:22 AM EDT) Pathologist [facility] Vitamin B-12 189(L) 211 - 946 pg/mL 03/15/2025 11:31 PM EDT [facility] Blood Structure of left upper limb / Unknown Venipuncture / Unknown 03/15/2025 11:22 AM EDT 03/15/2025 11:22 AM EDT [facility] - 03/15/2025 11:31 PM EDT Results may be falsely increased if patient taking Biotin. us Mary Wolff MD LAB BLOOD ORDERABLES Fin al Result [facility]
[address] [place] [address], * (ABNORMAL) Lipid Panel (03/15/2025 11:22 AM EDT) [facility] Total Cholesterol 172 0 - 200 mg/dL 03/15/2025 11:48 PM EDT [facility] Triglycerides 78 0 - 150 mg/dL 03/15/2025 11:48 PM EDT [facility] HDL Cholesterol 43 40 - 60 mg/dL 03/15/2025 11:48 PM EDT [facility] LDL Cholesterol 114(H) 0 - 100 mg/dL 03/15/2025 11:48 PM EDT [facility] VLDL Cholesterol 15 5 - 40 mg/dL 03/15/2025 11:48 PM EDT [facility] LDL/HDL Ratio 2.64 03/15/2025 11:48 PM EDT [facility] Blood Venipuncture / Unknown 03/15/2025 11:22 AM EDT 03/15/2025 11:22 AM EDT [facility] - 03/15/2025 11:48 PM EDT Cholesterol Reference Ranges (U.S. Department of Health and Human Services ATP III Classifications) Desirable <200 mg/dL Borderline High 200-239 mg/dL High Risk >240 mg/dL Triglyceride Reference Ranges (U.S. Department of Health and Human Services ATP III Classifications) Normal <150 mg/dL Borderline High 150-199 mg/dL High 200-499 mg/dL Very High >500 mg/dL HDL Reference Ranges (U.S. Department of Health and Human Services ATP III Classifications) Low <40 mg/dl (major risk factor for CHD) High >60 mg/dl ('negative' risk factor for CHD) LDL Reference Ranges (U.S. Department of Health and Human Services ATP III Classifications) Optimal <100 mg/dL Near Optimal 100-129 mg/dL Borderline High 130-159 mg/dL High 160-189 mg/dL Very High >189 mg/dL LDL is calculated using the NIH LDL-C calculation. Mary Wolff MD LAB BLOOD ORDERABLES Fin al Result [facility]
[address] [place] [address], * Comprehensive Metabolic Panel (03/15/2025 11:22 AM EDT) [facility] Glucose 71 65 - 99 mg/dL 03/15/2025 11:48 PM EDT [facility] BUN 12.0 6.0 - 20.0 mg/dL 03/15/2025 11:48 PM EDT [facility] Creatinine 0.80 0.57 - 1.00 mg/dL 03/15/2025 11:48 PM EDT [facility] Sodium 139 136 - 145 mmol/L 03/15/2025 11:48 PM EDT [facility] Potassium 4.4 3.5 - 5.2 mmol/L 03/15/2025 11:48 PM EDT [facility] Chloride 103 98 - 107 mmol/L 03/15/2025 11:48 PM EDT [facility] CO2 22.6 22.0 - 29.0 mmol/L 03/15/2025 11:48 PM EDT [facility] Calcium 10.2 8.6 - 10.5 mg/dL 03/15/2025 11:48 PM EDT [facility] Total Protein 8.0 6.0 - 8.5 g/dL 03/15/2025 11:48 PM [facility] Albumin 4.5 3.5 - 5.2 g/dL 03/15/2025 11:48 PM [facility] ALT (SGPT) 16 1 - 33 U/L 03/15/2025 11:48 PM [facility] AST (SGOT) 16 1 - 32 U/L 03/15/2025 11:48 PM [facility] Alkaline Phosphatase 89 39 - 117 U/L 03/15/2025 11:48 PM [facility] Total Bilirubin 0.3 0.0 - 1.2 mg/dL 03/15/2025 11:48 PM [facility] Globulin 3.5 gm/dL 03/15/2025 11:48 PM [facility] A/G Ratio 1.3 g/dL 03/15/2025 11:48 PM [facility] BUN/Creatinine Ratio 15.0 7.0 - 25.0 03/15/2025 11:48 PM [facility] Anion Gap 13.4 5.0 - 15.0 mmol/L 03/15/2025 11:48 PM [facility] eGFR 99.3 >60.0 mL/min/1.7 3 03/15/2025 11:48 PM [facility] Blood Venipuncture / Unknown 03/15/2025 11:22 AM EDT 03/15/2025 11:22 AM [facility] - 03/15/2025 11:48 PM EDT GFR Categories in Chronic Kidney Disease (CKD) GFR Category GFR (mL/min/1.73) Interpretation G1 90 or greater Normal or high (1) G2 60-89 Mild decrease (1) G3a 45-59 Mild to moderate decrease G3b 30-44 Moderate to severe decrease G4 15-29 Severe decrease G5 14 or less Kidney failure (1)In the absence of evidence of kidney disease, neither GFR category G1 or G2 fulfill the criteria for CKD. eGFR calculation 2020 CKD-EPI creatinine equation, which does not include race as a factor Mary Wolff MD LAB BLOOD ORDERABLES Fin al Result [facility]
[address] [place] [address], * Hepatitis C Antibody (06/02/2022 5:03 PM EDT) Hepatitis C Ab Non-Reacti ve Non-Reacti ve 06/03/2022 12:08 AM EDT [facility] Blood Venipuncture / Unknown 06/02/2022 5:03 PM EDT 06/02/2022 5:18 PM EDT Narrative [facility] - 06/03/2022 12:08 AM EDT Results may be falsely decreased if patient taking Biotin. Tawny Boss MD LAB BLOOD ORDERABLES Final Re sult Performing Organization Address [facility] Co de Phone Number [facility]
[address] [place] [address], from Last 3 Months or Most Recently Relevant to Health Maintenance Insurance [id number] EMPLOYEE Advance Directives * CPR (Attempt to Resuscitate) (Latest Code Status on File) Date Activated Date Inactivated Comments 12/09/2022 3:13 PM 12/11/2022 2:58 PM Question Answer Comments Code Status (Patient has no pulse and is not breathing): CPR (Attempt to Resuscitate) Medical Interventions (Patie nt has pulse or is breathing): Full * CPR (Attempt to Resuscitate) Date Activated Date Inactivated Comments 12/09/2022 10:44 AM 12/09/2022 3:13 PM Question Answer Comments Code Status (Patient has no pulse and is not breathing): CPR (Attempt to Resuscitate) Medical Interventions (Patie nt has pulse or is breathing): Full Support Level Of Support Discussed With: Patient * CPR (Attempt to Resuscitate) Date Activated Date Inactivated Comments 06/27/2020 9:04 PM 06/29/2020 5:35 PM Question Answer Comments Code Status (Patient has no pulse and is not breathing): CPR (Attempt to Resuscitate) Medical Interventions (Patie nt has pulse or is breathing): Full * CPR (Attempt to Resuscitate) Date Activated Date Inactivated Comments 06/26/2020 12:34 PM 06/27/2020 9:04 PM Question Answer Comments Code Status (Patient has no pulse and is not breathing): CPR (Attempt to Resuscitate) Medical Interventions (Patie nt has pulse or is breathing): Full Care Teams Steel Erector Relationship Specialty Start Date End Date Andrea De Luna MD [address] [facility] [address] [place] [address] PCP - General Adolescent Medicine 12/07/22
--- OUTSIDE RECORDS SUMMARY | 2025-05-18 12:16 | XMS_ITS | Patient Health Record ---
Author Organization [facility] Address [address] [facility] [address] [place] [address] Care Team Providers Care Mine Surveyor Name Role Phone Catherien Espana Unavailable [phone] Tawny Boss Unavailable [phone] LrHalina beard Unavailable [phone] Allergies Allergen (clinical drug ingredient) Drug/Non Drug Allergy documented on EMR Reaction Allergy Type Onset Date Status LEVOTHYROXINE(Colore d tablets ONLY) (uncoded) Unknown Allergy Active Results Component Value Reference Range Notes Pap w/HPV Reviewed date:10/30/2024 01:58:36 PM Interpretation:Pap normal, HPV negative Performing Lab:[facility] - [place] CLIA ID [id number], [address], [place] [address], Director - Sher Murrell MD Notes/Report: Any Nucleic Acid Amplification testing is performed on the [employer] [place]. Diagnosis: Negative for intraepithelial lesion or malignancy. AP results Other Gynecological Patient Information: Not provided Pertinent Clinical History/History of Surgery: Not provided Specimen Source: Cervical/Endocervical Results of Last Pap: Not provided Date of Last Pap: Not provided Recommendation: Follow-up based on current clinical guidelines and/or clinical consideration. Satisfactory for interpretation with endocervical/transformat ion zone component absent. Ladies Suit Operator Negative for intraepithelial lesion or malignancy. Collection Technique: Not provided Specimen Adequacy: FINAL AUTO ROLLER CYTOLOGY REPORT Specimen Type: ThinPrep Yokasta Mcdaniel Screening note: This specimen has been analyzed by the [employer] Mobile Imaging System, an interactive computer system which assists the lab in screening of ThinPrep Pap Test slides. Following imaging, the slide was reviewed by a Ladies Suit Operator and/or Pathologist. CPT Codes: 55200 ICD Codes: Z01.419 Negative Educational Note: The pap screening test aids in the detection of premalignant and malignant states of the cervix. False positive and negative results may occur. It is not a diagnostic test. If abnormal cells are reported, follow-up based on current clinical guidelines and/or clinical consideration is recommended. DIAGNOSIS: LMP: . HPV High-Risk Negative Negative Reason For Referral No Information Medications Medication SIG (Take, Route, Frequency, Duration) Notes Start Date End Date Status Ondansetron HCl 4 MG Tablet 1 tablet Ora lly every 6 hours as needed; Duration: 30 days 04/27/2025 Active Levothyroxine Sodium 75 MCG Tablet 1 tablet in the morning on an empty stomach Orally Once a day Active Escitalopram Oxalate 10 MG Tablet Take 1 tablet by mouth once daily; Duration: 90 Active Contrave 8-90 MG Tablet Extended Release 12 Hour Start 1 tab PO qam x 1 week then 1 tab POtwice dailyx 1 week then 2 tabs PO qam and 1 tab PO qpm x 1 week then 2 tabs PO twice daily Orally as directed; Duration: 30 days 10/23/2024 Active Bonjesta 20-20 MG Tablet Extended Release 1 tablet at bedtime Orally Once a day; Duration: 30 days 04/27/2025 Active Social History Tobacco Use: Social History Observation Description Date Details (start date - stop date) Never Smoker NA - NA Social History Sexual History: Social Info Question Answer Notes Sexual History Had sex in the past 12 months (vaginal, oral, or anal)? Yes Have you ever had a Sexually transmitted disease ? No Last menstrual period 12/12/2021 Drugs/Alcohol: Social Info Question Answer Notes Drugs Have you used drugs other than those for medical reasons in the past 12 months? No Steroid Use Have you used anabolic (body building) st eroids? No Alcohol Screen Did you have a drink containing alcohol in the past year? No Points 0 Interpretation Negative Tobacco Use: Social Info Question Answer Notes Tobacco Use/Smoking Are you a nonsmoker Additional Findings: Tobacco Non-User Current no n-smoker Tobacco use other than smoking: Are you an other tobac co user? 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 Admits to occasional ETOH before Denies past/present use of t obacco, substances. Admits to occasional ETOH before Denies past/present use of t obacco, substances. Admits to occasional ETOH before Denies past/present use of t obacco, substances. Admits to occasional ETOH before Denies past/present use of t obacco, substances. Admits to occasional ETOH before Denies past/present use of t obacco, substances. Admits to occasional ETOH before Denies past/present use of t obacco, substances. Admits to occasional ETOH before Denies past/present use of t obacco, substances. Admits to occasional ETOH before Denies past/present use of t obacco, substances. Admits to occasional ETOH before Denies past/present use of t obacco, substances. Admits to occasional ETOH before Denies past/present use of t obacco, substances. Admits to occasional ETOH before Denies past/present use of t obacco, substances. Admits to occasional ETOH before Denies past/present use of t obacco, substances. Admits to occasional ETOH before Denies past/present use of t obacco, substances. Admits to occasional ETOH before Denies past/present use of t obacco, substances. Admits to occasional ETOH before Denies past/present use of t obacco, substances. Admits to occasional ETOH before Problems Problem Type SNOMED Code ICD Code Onset Dates Problem Status W/U Status Risk Notes Problem Anxiety (55002859) Anxiety (F41.9) Active confirmed Problem *Obesity complicating , third trimester (Code also weeks of gestation) (O99.213) Active confirmed Problem Abnormal uterine bleeding (63405600172349) Abnormal uterine and vaginal bleeding, unspecified (N93.9) Active confirmed Problem Missed period (21235135) Missed period (N92.6) Active confirmed Problem wound disruption (898564796) wound disruption (O90.0) Active confirmed Disruption of delivery wound Problem Third trimester (81295182) Supervision of other normal , third trimester (Z34.83) Active confirmed Supervision of other normal , third trimester Problem Elevated blood pressure reading without diagnosis of hypertension (498235554) Blood pressure elevated without history of HTN (R03.0) Active confirmed Elevated blood pressure Problem Gynecological examination normal (018988838230232 ) Cervical smear, as part of routine gynecological examination (Z01.419) 021 Active confirmed Annual without abnormal findings Problem screening (540348939) screening for streptococcus B (Z36.85) Active confirmed Encounter for screening for Streptococcus B Problem *Decreased movements, 3rd trimester , fetus 1 (Code also - Weeks of gestation Z3A) (O36.8131) Active confirmed Decreased movements, third trimester, fetus 1 Problem Hypothyroidism (77337140) ABD PAIN EPIGASTRIC (E03.9) Active confirmed Hypothyroidism Vital Signs Blood pressure diastolic 64 mm Hg 10/23/2024 Height 63 in 10/23/2024 Blood pressure systolic 112 mm Hg 10/23/2024 Weight 235.4 lbs 10/23/2024 BMI 41.69 kg/m2 10/23/2024 Encounters Encounter Location Date Provider Diagnosis [facility] [address] [place] [address] 10/25/2024 Halina Lr [facility] [address] [facility] [address] [place] [address] 04/20/2025 Tawny Boss Missed period N92.6 [facility] [address] [place] [address] 04/27/2025 Tawny Boss [facility] [address] [place] [address] 10/23/2024 [place] Lr Disbursing Officer exam without abnormal findings Z01.419 and Abnormal weight gain R63.5 Assessments Encounter Date Diagnosis (ICD Code) Assessment Notes Treatment Notes Treatment Clinical Notes Section Notes 10/23/2024 Abnormal weight gain (ICD-10 - R63.5) -The patients weight was discussed. A supervised weight loss plan was recommended. Exercising 30-60 minutes per day was also encouraged. -Fasting labs are up to date -Patient is interested in weight loss medications -Benefits, risks and possible adverse effects of weight loss medications were reviewed for Phentermine, Diethylpropion, Saxenda, Wegovy, Zepbound and Contrave. Off label use of medications such as topiramate and metformin for potential added benefit of weight loss were reviewed. We also discussed compounded oral and injectable semaglutide through [facility] if interested. Discussed compounded formulations have not been FDA approved for safety or efficacy. She denies contraindications to medications. -She agrees to limit total use to 6 months or less with stimulants. Pt is aware of risk of rebound weight gain. A plan to develop healthier eating and exercise habits during these 6 months was discussed. She is aware of goal of at least 5% total body weight loss by 3 months of medication to be considered a responder. Patient is aware must have appointment for refills of controlled medications. -MyFitness pal was discussed. Recommend daily intake less than 100g carbs and consume greater than 100g protein daily. -Increase exercise with goal of 30 minutes daily 5x weekly -Desires trial of contrave. Side effects with all others - risks reviewed -Follow up in 4 weeks. 10/23/2024 Disbursing Officer exam without abnormal findings (ICD-10 - Z01.419) -Pap smear collected today -Monthly breast self exam recommendations reviewed -Recommend annual well women exams -Return to care 1 year or prn 04/20/2025 Missed period (ICD-10 - N92.6) Plan Of Treatment Future Test Test Name Order Date * OB Transvaginal 04/24/2025 Next Appt Details Provider Name:Tawny Boss, 06/06/2025 09:45:00 AM, [address], [place], [address], Provider Name:Tawny Boss, 06/06/2025 10:00:00 AM, [address], [place], [address], Insurance Providers Payer Name Payer Address Payer Phone Subscriber Number Group Number Insured Name Patient Relationship to Insured Coverage Start Date Coverage End Date Nicole CHRISTIANSONO [address] [place] [address] [id number] Betojuanjo Jackelin Self - patient is the insured Medical (General) History Medical History History ICD Code Hypothyroidism UTIs Yeast Infections Pre-cancerous mole on Labia PP-anxiety Surgical History Surgery Date(Month/Year) Caesarean section 06/27/2020 [place] teeth removal 2008 Hospitalization History Reason Date(Month/Year) Caesarean section 06/27/2020
--- OUTSIDE RECORDS SUMMARY | 2025-05-18 12:17 | XMS_ITS | Patient Health Record ---
Author Organization [facility] Address [address] [place] [address] [place] [address] Care Team Providers Care Marker Assembler Name Role Phone Andrea De Luna Primary Care Provider Clair Brown Unavailable [phone] Tawny Da Silva Unavailable [phone] Migration, Provider Unavailable Unavailable Allergies Allergen (clinical drug ingredient) Drug/Non Drug Allergy documented on EMR Reaction Allergy Type Onset Date Status levothyroxine Levothyroxine colored tabs- hives Drug Allergy Active Results Component Value Reference Range Notes CULTURE, URINE, ROUTINE (395 ) Reviewed date:04/09/2025 10:34:48 AM Interpretation: Performing Lab:[facility], [id number] [facility] Chirag Cowart Notes/Report: NON-FASTING CULTURE, URINE, ROUTINE SEE NOTE CULTURE, URINE, ROUTINE Micro Number: [id number] Test Status: Final Specimen Source: Urine Specimen Quality: Adequate Result: Mixed genital yin isolated. These superficial bacteria are not indicative of a urinary tract infection. No further organism identification is warranted on this specimen. If clinically indicated, recollect clean-catch, mid-stream urine and transfer immediately to Urine Culture Transport Tube. Urinalysis Reviewed date:04/05/2025 09:40:28 AM Interpretation: Performing Lab: Notes/Report: Color/Clarity yellow Leuk neg Nitrite neg Urobili 0.2 Protein neg pH 5.5 Blood neg Sp. Gr. 1.025 Ketone neg Bili neg Glucose neg Medications Medication SIG (Take, Route, Frequency, Duration) Notes Start Date End Date Status Levothyroxine Sodium 88 MCG 1 tab(s) ora lly once a day Active Nystatin 328837 UNIT/GM 1 application Ex ternally Twice a day; Duration: 7 days 04/05/2025 Active Nystatin 028985 UNIT/GM 1 application Ex ternally Twice a day; Duration: 7 days 04/05/2025 Active Immunizations Vaccine Route Administration Date Status Comme nts Flublok IM Intramuscular 07/17/2022 Administered Flublok IM Intramuscular 07/13/2024 Administered FluMist IN intranasal 08/17/2008 Administered Fluvirin--Influenz a vaccine 3+ year IM Intramuscular 07/05/2009 Administered Fluvirin--Influenz a vaccine 3+ year IM Intramuscular 08/08/2010 Administered Fluvirin--Influenz a vaccine 3+ year IM Intramuscular 07/20/2011 Administered FLUZONE 6MO - OLDER IM Intramuscular 07/21/2023 Administered Gardisil (HPV4) VFC IM Intramuscular 08/17/2008 Administered Hep A Adult 2 Dose Unknown 05/04/2018 Administered Hep A Adult 2 Dose Unknown 11/20/2018 Administered HPV4 (Gardasil Vaccine Dose 2-VFC) IM Intramuscular 10/19/2008 Administered HPV4 (Gardasil Vaccine Dose 3-VFC) IM Intramuscular 03/15/2009 Administered PPD ID Intradermal 08/29/2008 Administered PPD IM Intramuscular 05/20/2010 Administered PPD SC Subcutaneous 01/24/2011 Administered negativ e test on 01/26/2011 per Shannan LEMA PPD ID Intradermal 08/13/2012 Administered Problems Problem Type SNOMED Code ICD Code Onset Dates Problem Status W/U Status Risk Notes Problem Supraventricular tachycardia (0181539) Supraventricular tachycardia (I47.1) Active confirmed Problem Vitamin B12 deficiency (non anemic) (70864195) B12 deficiency (E53.8) Active confirmed Problem Body mass index 40+ - morbidly obese (576067242) BMI 40.0-44.9, adult (Z68.41) Active confirmed Problem Fever blister (6773992) Fever blister (B00.1) Active confirmed Problem Allergic rhinitis caused by pollen (54682549) Seasonal allergic rhinitis due to pollen (J30.1) Active confirmed Problem Hypothyroidism (84361832) Unspecified hypothyroidism (E03.9) Active confirmed Problem Xeroderma (86217786) Xeroderma (Q80.9) Active confirmed Problem Cough (59301488) Cough (R05.9) Active confirmed Vital Signs Heart Rate 80 /min 04/05/2025 Temperature 97.6 degrees Fahrenheit 04/05/2025 Blood pressure diastolic 82 mm Hg 04/05/2025 Height 62 in 04/05/2025 Blood pressure systolic 120 mm Hg 04/05/2025 Weight 249 lbs 04/05/2025 BMI 45.54 kg/m2 04/05/2025 Encounters Encounter Location Date Provider Diagnosis [facility] [address] [place] [address] 01/06/2025 Provider Migration Bronchitis J40 and Acute non-recurrent maxillary sinusitis J01.00 [facility] [address] [place] [address] 07/13/2024 Tawny Da Silva Immunization(s) administered Z23 [facility] [address] [place] [address] 08/30/2024 Tawny Da Silva Acute non-recurrent maxillary sinusitis J01.00 and Bronchitis J40 [facility] [address] [place] [address] 04/05/2025 Tawny Da Silva Dysuria R30.0 and Yeast dermatitis B37.2 Assessments Encounter Date Diagnosis (ICD Code) Assessment Notes Treatment Notes Treatment Clinical Notes Section Notes 07/13/2024 Immunization(s) administered (ICD-10 - Z23) 08/30/2024 Bronchitis (ICD-10 - J40) 08/30/2024 Acute non-recurrent maxillary sinusitis (ICD-10 - J01.00) 01/06/2025 Bronchitis (ICD-10 - J40) 01/06/2025 Acute non-recurrent maxillary sinusitis (ICD-10 - J01.00) 04/05/2025 Dysuria (ICD-10 - R30.0) 04/05/2025 Yeast dermatitis (ICD-10 - B37.2) Keep area clean and dry, start topical therapy as noted and continue to use for several days after resolution of rash. Return precautions reviewed Plan Of Treatment Pending Test Test Name Order Date Rapid Strep 01/20/2017 Rapid Strep 01/09/2011 EKG : In House 01/13/2018 Holter Monitor, 24 Hour 01/17/2018 H-CBC with AUTO DIFF 01/26/2013 H-CBC with AUTO DIFF 04/16/2009 H-CBC with AUTO DIFF 01/13/2018 H-VITAMIN B12 01/13/2018 H-VITAMIN B12 01/26/2013 H-CMP 01/26/2013 H-CMP 01/13/2018 H-MAGNESIUM 01/26/2013 H-TSH 01/13/2018 H-TSH 01/26/2013 H-FREE T4 01/13/2018 H-MICROALBUMIN URINE 04/16/2009 H-URINALYSIS 04/16/2009 C-URINE CULTURE 07/26/2009 C-URINE CULTURE 02/25/2012 H-SS A 11/29/2013 H-SS B 11/29/2013 Ultrasound : Transabdominal 2011 H-PTT 04/27/2016 M-COVID PCR SINGLE RAPID 11/08/2021 Insurance Providers Payer Name Payer Address Payer Phone Subscriber Number Group Number Insured Name Patient Relationship to Insured Coverage Start Date Coverage End Date [facility] [address] [place] [address] [id number] Jackelin Fregoso Self - patient is the insured Medications Administered Medication Instructions Date of Administration Dosage Notes Kenalog 40mg 10/20/2017 40 mg Triamcinolone Acetonide 40mg Injection 09/15/2018 1 mL Kenalog 04/09/2015 1 mL Kenalog 02/28/2016 1 mL Medical (General) History Medical History History ICD Code hypothyroidism Surgical History Surgery Date(Month/Year) wisdom teeth extracted 05/12 12/2022 Hospitalization History Reason Date(Month/Year)
--- OUTSIDE RECORDS SUMMARY | 2025-05-18 12:17 | XMS_ITS | Encounter Summary ---
Author Organization [facility] Address [address] [place] [address] Care Team Providers Care Butcher Scullion Name Role Phone Andrea De Luna MD Primary Care Provider + [phone] Reason for Visit * Reason Comments Med Refill Encounter Details Date Type Department Care Team (Late st Contact Info) Description 01/31/2025 Refill [facility] [address] [facility] [address] [place] [phone] Mary Wolff MD [address] [address] Social History Tobacco Use Types Packs/Day Years [...] and heating? Not hard at all 06/26/2020 [facility] of Occupat ional Health - Occupational Stress [...] things needed for daily living? No 06/26/2020 [place] Depression Scale Answer Date Recorded Retired [place] Depression Score 2 12/09/2022 Retired EPD Scale: [...] PM EDT documented as of this encounter Plan of Treatment Upcoming Encounters Date Type Department Care Team (Late st Contact Info) Description 03/04/2026 8:15 AM EDT Office Visit [facility] [address] [facility] [address] [place] [address] Mary Wolff MD [address] [facility] [address] [place] [address] documented as of this encounter Goals Goal [...] on filedocumented in this encounter Care Teams Butcher Scullion Relationship Specialty Start Date End Date Andrea De Luna MD [address] [place] [address] [address] [facility] [address] [place] [address] PCP - General Adolescent Medicine 12/07/22 documented as of this encounter
--- OUTSIDE RECORDS SUMMARY | 2025-05-18 12:17 | XMS_ITS | Encounter Summary ---
Author Organization [facility] Address [address] [place] [address] Care Team Providers Care Zoogler Name Role Phone Andrea De Luna MD Primary Care Provider + [phone] Reason for Visit * Reason Comments Med Refill Encounter Details Date Type Department Care Team (Late st Contact Info) Description 04/15/2024 Refill [facility] [address] [facility] [address] [place] [phone] Mary Wolff MD [address] [address] Social History Tobacco Use Types [...] and heating? Not hard at all 06/26/2020 [facility] of Occupat ional Health - Occupational Stress [...] things needed for daily living? No 06/26/2020 [place] Depression Scale Answer Date Recorded Retired [place] Depression Score 2 12/09/2022 Retired EPD Scale: [...] Description 03/04/2026 8:15 AM EDT Office Visit [facility] [address] [facility] [address] [place] [address] Mary Wolff MD [address] [facility] [address] [place] [address] documented as of this encounter Goals Goal [...] on filedocumented in this encounter Care Teams Zoogler Relationship Specialty Start Date End Date Andrea De Luna MD [address] [place] [address] [address] [facility] [address] [place] [address] PCP - General Adolescent Medicine 12/07/22 documented as of this encounter
== END 2025-05-16 23:59 | disposition home or self-care (01) ==
LOC: LAB.DROPOF 05-18 12:15
PROVIDERS: PCP Internal Medicine Adolescent Medicine; Visit Provider Student in an Organized Health Care Education/Training Program
DX: J06.9 Acute upper respiratory infection, unspecified (principal)
CPT/HCPCS: 87631